=== PATIENT | male | born 1980 | race African-American/Black ===

== ENCOUNTER 2017-03-27 02:30 | Emergency (ER) | payer OTHER ==
[~2017-03-27] VITALS: Ht 175.3 cm; Wt 74.4 kg
[2017-03-27] MEDS ORDERED: NKM (02:40)
[2017-03-27 02:45] VITALS: BP 139/96
[2017-03-27] MEDS ORDERED: BACTRIM DS TAB1 EAC1 ORAL (03:21)
[2017-03-27] MEDS ORDERED: HYDROCODON-ACE1 EA15 ORAL (03:21)
--- NOTE | 2017-03-27 03:22 | Emergency Room Report ---
History of Present Illness General Chief Complaint: Skin Rash/Abscess Source: Patient Present Illness HPI This is a 36-year-old male with no past medical history. He presents with chief complaint of pain to the forehead. Has been ongoing for last few days. Swelling. Tender to touch. Also complaining of back pain. Worse with movement. No nausea no vomiting. No Fever or chills. Allergies: Coded Allergies: IVANNA (Verified Allergy, Unknown, 03/27/17) Patient History Past Medical History: none, see triage record, old chart reviewed Past Surgical History: none Pertinent Family History: none Social History: Denies: smoking Immunizations: other Reviewed Nursing Documentation: PMH: Agreed, PSxH: Agreed Nursing Documentation-PMH Past Medical History: No Stated History Review of Systems Eye: Denies: eye pain, blurred vision ENT: Denies: ear pain, nose congestion, throat swelling Respiratory: Denies: cough, shortness of breath Cardiovascular: Denies: chest pain, palpitations Gastrointestinal: Denies: abdominal pain, diarrhea, nausea, vomiting Musculoskeletal: Denies: back pain, joint pain Skin: Denies: rash Neurological: Denies: headache, numbness Endocrine: Denies: increased thirst, increased urine Hematologic/Lymphatic: Denies: easy bruising All Other Systems: negative except mentioned in HPI Physical Exam Vital Signs Date Time Temp Pulse Resp B/P (MAP) Pulse Ox O2 Delivery O2 Flow Rate FiO2 03/27/17 02:34 98.1 82 16 139/96 99 Room Air vitals normal Sp02 EP Interpretation: reviewed, normal General Appearance: well appearing, no apparent distress, alert Head: normocephalic, atraumatic, other - Midforehead there is a tender area of 2 cm. Eyes: bilateral eye PERRL, bilateral eye EOMI ENT: hearing grossly normal, normal pharynx Neck: full range of motion, supple, no meningismus Respiratory: chest non-tender, lungs clear, normal breath sounds Cardiovascular #1: regular rate, rhythm, no murmur Gastrointestinal: normal bowel sounds, non tender, no mass, no organomegaly, no bruit, non-distended Musculoskeletal: back normal, gait/station normal, normal range of motion Psychiatric: mood/affect normal Skin: warm/dry Procedures Incision and Drainage Incision and Drainage : Consent: Verbal Site: Forehead Blade Size: 11 I & D Procedure: betadine prep Wound Location: face Anesthesia: 1% Lidocaine Volume Anesthetic (ccs): 3 Patient Tolerated: Well Complications: None Progress Area clean with Betadine. Local anesthetic 1% lidocaine without epinephrine. I made a 1 cm incision. There was pus expressed. As I was squeezing abscess, a cottage cheesy mass expressed. I gave him some or anesthesia with lidocaine. I tried to remove part of the core. Patient tolerated procedure without a problem. No complication. Medical Decision Making Diagnostic Impression: Primary Impression: Infected sebaceous cyst of skin ER Course This patient presents with infected sebaceous cyst. No deep abscess. No necrotizing fasciitis. No foreign body. We'll discharge him Last Vital Signs Date Time Temp Pulse Resp B/P (MAP) Pulse Ox O2 Delivery O2 Flow Rate FiO2 03/27/17 02:45 98.1 82 16 139/96 99 Room Air Status: improved Disposition: HOME, SELF-CARE Condition: Stable Scripts Hydrocodone/Acetaminophen 5-325* (HYDROCODONE/ACETAMINOPHEN 5-325*) 1 Each Tablet 1 TAB ORAL Q6H Y for For Pain, #15 TAB 0 Refills Prov: LORA THOMSON M.D. 03/27/17 Trimethoprim/Sulfamethoxazole 160/800* (BACTRIM DS TABLET*) 1 Each Tablet 1 TAB ORAL Q12H, #14 TAB 0 Refills Prov: LORA THOMSON M.D. 03/27/17 Referrals: NON PHYSICIAN (PCP) Additional Instructions: Followup with your DrZeferino in 7 days. Change dressing twice a day. Return if worse. LORA THOMSON M.D. Mar 27, 2017 03:22
[2017-03-27 03:27] VITALS: BP 139/96
[2017-03-27] MEDS ORDERED: Bactrim DS (160mg/800mg) tab ORAL ONE (03:30)
[2017-03-27] MEDS ORDERED: Norco 5mg/325mg tab ORAL ONE (03:30)
== END 2017-03-27 03:27 | disposition home or self-care (01) ==
LOC: EMR 03:03
DX: L72.3 Sebaceous cyst (principal); Z91.018 Allergy to other foods
CPT/HCPCS: 10061; 99284